=== PATIENT | female | born 1970 | race Caucasian/White ===

== ENCOUNTER → 2022-10-31 12:07 | Outpatient (BNVA) | payer OTHER, SELFPAY | PROVIDERS: PCP Internal Medicine; Visit Provider Physician Assistant Medical | DX: S90.31XA Contusion of right foot, initial encounter (principal); W22.8XXA Striking against or struck by other objects, initial encounter | CPT/HCPCS: 99202 ==

== ENCOUNTER → 2024-10-11 11:11 | Outpatient (BNVA) | payer OTHER, SELFPAY | PROVIDERS: PCP Internal Medicine; Visit Provider Physician Assistant Medical | DX: Z02.1 Encounter for pre-employment examination (principal) ==

== ENCOUNTER 2025-10-03 08:06 | Outpatient (AMB) | payer OTHER, SELFPAY ==
--- NOTE | 2025-10-03 08:37 | MHC.OFFVISWM ---
VS Expanded 10/03/25 08:48 Height 5 ft 3 in Weight 193 lb BMI 34.2 Body Fat % 33.9 Body Fat Mass 64.4 Fat Free Mass 125.6 Visceral Fat Rating 9 Body Water % 47 Body Water Mass 89.2 Basal Metabolic Rate/Score 1,693 Intake Visit Reasons: [employer] [facility] BMI 33.7 Allergies No Known Allergies Allergy (Verified 10/03/25 08:37) Medication List - Last Reconciled 10/03/25 by Ben Mixon MD albuterol sulfate 90 mcg/actuation (Ventolin HFA) 2 puffs inhalation Q6H PRN [atorvastin PO] levothyroxine 112 mcg PO DAILY pantoprazole 40 mg PO DAILY HPI HPI [employer] [facility] BMI 33.7: Details: Start time: 8.06am, End time: 9.06am ?I spent 45 minutes speaking with the patient on the phone plus an additional 15 minutes reviewing and updating records for a total of 60 minutes HPI Comments Details: Previous weight loss efforts: Wakes up: 5am, Sleeps: 12am Breakfast: skips Lunch: 12pm (sandwich) Dinner: 5-6pm (chicken, rice, salad) Snacks: 10am (yogurt sometimes), sometimes after dinner (fruits, yogurt) Exercise: none Beverages: Coffee: (2 cups/d with creamer and sugar), Tea: 1-2/wk (1 cup with honey), Soda: none, Juice: (orange juice: 1-2/wk), ETOH: 1/month [facility] Medical History (Updated 10/03/25 @ 08:54 by Ben Mixon MD) Hyperlipidemia Asthma Hypothyroidism GERD (gastroesophageal reflux disease) BMI 33.0-33.9,adult Obesity Surgical History (Updated 10/03/25 @ 08:39 by Ben Mixon MD) History of delivery Hx laparoscopic cholecystectomy History of lumbar fusion Family History (Updated 07/25/25 @ 08:11 by Tanja Garcia CMA) Mother Diabetes Hypertension Father Liver failure Son Obesity Son No problems noted. Social History (Updated 07/25/25 @ 08:11 by Tanja Garcia CMA) Alcohol intake: current Alcohol intake frequency: holidays/special occasions only Patient Tobacco Use Status: Current everyday Tobacco user Cigarettes Per Day: 5 Telehealth Telehealth Telehealth Platform: Telephone Location of provider rendering services: practice address Location of patient: address on file Patient Identification confirmed using: Name, : Yes Telehealth method: voice only Patient verbally consented to treatment: Yes Patient verbally consented to billing insurance company: Yes Patient informed of any privacy concerns related to visit: Yes Minutes spent on Phone/Video with Pt.: 60 Assessment & Plan Assessment & Plan (1) Obesity: Code(s): E66.9 - Obesity, unspecified Category: Medical Qualifiers: Obesity type: due to excess calories Obesity classification: adult class 1 (BMI 30 - 34.9) Serious obesity comorbidity presence: with serious comorbidity Body mass index: BMI 33.0-33.9 Qualified Code(s): E66.811 - Obesity, class 1; E66.09 - Other obesity due to excess calories; Z68.33 - Body mass index [BMI] 33.0-33.9, adult Plan: 1. Nutritional counseling. Start with one CELEBRATE REBUILD protein (buy online with the link I gave you) shake (HALF scoop in 8oz low fat unsweetened almond milk each) at 6am-8am, 1 protein bar (CELEBRATE protein bars, buy at [facility] [employer] shop, buy online with the link I gave you) at 9am-11am, another CELEBRATE REBUILD protein shake (HALF scoop in 8oz low fat unsweetened almond milk) at 12pm-2pm, another Celebrate protein bar at 3pm-5pm, dinner at 6pm (8 forks of protein and 8 forks of salad/vegetables) AND another CELEBRATE REBUILD protein shake (HALF scoop in 8oz low fat unsweetened almond milk) at 8pm-10pm. So you do 3 protein shakes, 2 protein bars and one meal per day. Meal to include lean meat (beef, fish, pork, turkey, chicken), or z[place] yogurt, or egg whites, or beans with a salad with olive oil and fruits (berries, pears, apples, kiwi). Avoid salt, breads, potatoes, rice, pasta, desserts. 2. Each shake would be drunk slowly, like coffee in a period of 2 hours. 3. Cut each bar in 4 pieces and eat each piece in 30min ?to make each bar last 2 hours. 4. I emphasized the importance of measuring accurately the food portion and measure it when serving the food in plate 5. The meal portions include 8 full-size forks of meat and 8 full-size forks of salad. You always eat the meat portion but you can replace up to 4 forks for salad/vegetables with rice, potatoes or pasta, or a fruit ?if you like. The less you do it the better weight loss will be. 6. One full-size fork is what it can be scooped on the fork without falling aside and not what can be bit with the fork. Use regular forks like those you find in a typical restaurant. 7.? Please buy the body composition scale we discussed and send me weight measurements as soon as possible and then once a week. Always include your diet and exercise plan. 8. Start walking outside daily, tracking calories with a goal of 300 calories per day, daily. Goal is to burn 2000 calories per week on exercise, which means either 300 calories daily, or 400 calories 5 days per week, or 500 calories 4 days per week, or 650 calories 3 days per week. 9. Alternatively start stationary bike at a resistance level of 4.0 Increase level by 1.0 every 3 min to a max level of 10.0. Stay at this level for 3 min and then return to level 4.0 and repeat same steps until 300 calories are burned. Velocity target is 12mph and heart rate is 145 bpm. Goal is to burn 2000 calories per week on exercise 10. The best choice would be to purchase a stationary bike, elliptical or treadmill at home that can track calories. Let me know if you do so I can give you an exercise plan. 11. I ordered a medication to help you with the weight loss which is called Zepbound. My office will try to authorize it. Please let me know when you receive it so I can give you a meal and exercise plan. Common side effects include nausea, vomiting, constipation, diarrhea, abdominal pain. Please let me know if you develop any of these symptoms. 12. Goal is to lose at least 1.5-2lbs per week 13. Goal to lose at least 10% of your weight, which is about 20lbs. Minimum weight goal: 170lbs 14. Please follow the diet plan exactly without any change. If you don't like something about the plan or you feel hungry you need to communicate with me so I can help you revise the plan. You should not change the plan yourself 15. Weight loss medications if your insurance does not cover the Zepbound: these can be used in conjunction with our lifestyle program or you may choose to use them without following a lifestyle program from my program but your own. One option is the Phentermine pill which is affordable as self pay option. It is well tolerated and most common side effects include blood pressure elevation, dry mouth, difficulty sleeping and heart palpitations. However, it can raise the blood pressure and it may not be the best option for you since you have high blood pressure already. It?s a temporary solution however and most patients tend to put the weight back once the medication is stopped. 16. If your insurance does not cover the new weight loss shots, we discussed that you can self pay for the weight loss injections and the cost is $249 for the first month and $499 for any other month thereafter. These payments go to the drug company directly and not to us. As we discussed, this is not a termite control technician solution, as most patients put all the weight back once they are off the medication. There is also an option to get generic versions from compound pharmacies at cheaper rates but their efficacy and how they are manufactured is not that clear.
[2025-10-03 08:48] VITALS: BMI 34.2
== END 2025-10-03 09:08 | disposition home or self-care (01) ==
LOC: HO.HBS 08:06
PROVIDERS: PCP Internal Medicine; Visit Provider Surgery
DX: E66.811 Obesity, class 1 (principal); Z68.34 Body mass index [BMI] 34.0-34.9, adult
CPT/HCPCS: 98011